=== PATIENT | male | born 1955 | race Caucasian/White ===

== ENCOUNTER 2016-06-14 10:22 | Inpatient (IN) | payer MEDICARE ==
[2016-06-14] MEDS ORDERED: traMADol HCl 50 MG TAB PO PRN (18:06)
[2016-06-14] MEDS ORDERED: Bisacodyl 10 MG SUPP PR PRN (18:15)
[2016-06-14] MEDS ORDERED: HumaLOG 300 UNITS/3 ML VIAL SC PRN (18:15)
[2016-06-14] MEDS ORDERED: Acetaminophen 325 MG TAB PO PRN (18:15)
[2016-06-14] MEDS ORDERED: Milk Of Magnesia 30 ML UDCUP PO PRN (18:15)
[2016-06-14] MEDS ORDERED: Dextrose 5% in Water 1,000 ML IV PRN (18:15)
[2016-06-14 19:02] LABS: #Basophils 0.2 thou/uL (0.0-0.2); #Eosinphils 0.4 thou/uL (0.0-0.7); #Lymphocytes 2.3 thou/uL (1.20-3.40); #Monocytes 0.9 thou/uL (0.11-0.59); #Neutrophils 7.9 thou/uL (1.40-6.50); %Basophils 1.4 % (0.0-1.0); %Eosinophils 3.7 % (0.0-10.0); %Monocytes 7.6 % (0.0-10.0); Hematocrit 33.7 % (42.0-52.0); Mean Platelet Volume 7.7 fL (7.4-10.4); Red Blood Cell (RBC) Count 3.57 mill/uL (4.70-6.10); White Blood Cell (WBC) Count 11.7 thou/uL (4.8-10.8)
[2016-06-14 19:13] LABS: ALT (SGPT) 34 U/L (0-55); AST (SGOT) 26 U/L (5-34); Alkaline Phosphatase 83 U/L (40-150); Anion Gap 14 mmol/L (10-20); BUN (Urea Nitrogen) 52 mg/dL (8.4-25.7); Bilirubin, Total 0.2 mg/dL (0.2-1.2); Calc. Creatinine Clearance 26 mL/min (70-130); Calcium 8.6 mg/dL (7.8-10.44); Carbon Dioxide 23 mmol/L (22-29); Chloride 109 mmol/L (98-107); Estimated GFR-MDRD 19; Protein, Total 6.4 g/dL (6.0-8.3)
[2016-06-14] MEDS ORDERED: Levemir Flexpen 100 UNITS/ML PEN SC SCH (21:00)
[2016-06-14] MEDS: Carvedilol 12.5 MG TAB PO SCH (21:36)
[2016-06-14] MEDS: Famotidine 20 MG TAB PO SCH (21:37)
[2016-06-14] MEDS: Mirtazapine 15 MG TAB PO SCH (21:37)
[2016-06-14] MEDS: Furosemide 40 MG TAB PO SCH (21:38)
[2016-06-14] MEDS: HumaLOG 300 UNITS/3 ML VIAL SC PRN (21:39)
[2016-06-14] MEDS: SODIUM BICARBONATE 650 MG PO SCH (21:40)
[2016-06-15] MEDS: traZODone HCl 50 MG TAB PO PRN ×2 (01:08→21:17)
[2016-06-15] MEDS ORDERED: Sodium Chloride 0.9% 10 ML ONE (05:58)
[2016-06-15] MEDS: Dextrose 50% Abboject 50 ML SYRINGE SLOW IVP PRN (06:05)
[2016-06-15] MEDS: Aspirin 325 MG TAB PO SCH (08:54)
[2016-06-15] MEDS: Furosemide 40 MG TAB PO SCH ×2 (08:54→21:11)
[2016-06-15] MEDS: Carvedilol 12.5 MG TAB PO SCH ×2 (08:55→21:11)
[2016-06-15] MEDS: Atorvastatin Calcium 40 MG TAB PO SCH (08:55)
[2016-06-15] MEDS: Ezetimibe 10 MG TAB PO SCH (08:55)
[2016-06-15] MEDS: Famotidine 20 MG TAB PO SCH (08:56)
[2016-06-15] MEDS: Cyanocobalamin (Vitamin B-12) 1,000 MCG TAB PO SCH (08:56)
[2016-06-15] MEDS: Clopidogrel Bisulfate 75 MG TAB PO SCH (08:56)
[2016-06-15] MEDS: BUPROPION 150 MG PO SCH (08:57)
[2016-06-15] MEDS: HumaLOG 300 UNITS/3 ML VIAL SC SCH ×3 (08:57→18:03)
[2016-06-15] MEDS: SODIUM BICARBONATE 650 MG PO SCH ×2 (08:58→21:10)
[2016-06-15] MEDS: Levemir Flexpen 100 UNITS/ML PEN SC SCH ×2 (09:07→21:12)
--- NOTE | 2016-06-15 09:11 | RAD ---
CHEST TWO VIEWS: Date: 06-14-16 Comparison: 05-10-[address] [facility]. FINDINGS: The congestive changes seen previously have completely resolved. There is some pleural fluid remain ing on the right and there does seem to be a right lower lobe infiltrate. If the patient has signs and symptoms with pneumonia, he should be treated as such. The left lung is relatively clear. The heart is upper normal in size. IMPRESSION: 1. Right lower lobe infiltrate. Compare with clinical symptoms to rule out pneumonia. 2. CHF resolved from prior study. Code T POS: HOME
[2016-06-15] MEDS ORDERED: Polyethylene Glycol 3350 17 GM Packet PO SCH (10:15)
[2016-06-15] MEDS ORDERED: traMADol HCl 50 MG TAB PO PRN (12:13)
[2016-06-15] MEDS ORDERED: Azithromycin 250 MG TAB PO SCH (21:00)
[2016-06-15] MEDS: Mirtazapine 15 MG TAB PO SCH (21:10)
[2016-06-16] MEDS ORDERED: Sodium Chloride 0.9% 20 ML ONE (07:26)
[2016-06-16] MEDS: Dextrose 50% Abboject 50 ML SYRINGE SLOW IVP PRN (07:33)
[2016-06-16] MEDS: HumaLOG 300 UNITS/3 ML VIAL SC SCH (07:34)
[2016-06-16] MEDS: SODIUM BICARBONATE 650 MG PO SCH ×2 (08:19→20:41)
[2016-06-16] MEDS: BUPROPION 150 MG PO SCH (08:20)
[2016-06-16] MEDS: Aspirin 325 MG TAB PO SCH (08:22)
[2016-06-16] MEDS: Atorvastatin Calcium 40 MG TAB PO SCH (08:22)
[2016-06-16] MEDS: Azithromycin 250 MG TAB PO SCH (08:23)
[2016-06-16] MEDS: Furosemide 40 MG TAB PO SCH ×2 (08:24→20:41)
[2016-06-16] MEDS: Famotidine 20 MG TAB PO SCH (08:24)
[2016-06-16] MEDS: Ezetimibe 10 MG TAB PO SCH (08:24)
[2016-06-16] MEDS: Clopidogrel Bisulfate 75 MG TAB PO SCH (08:25)
[2016-06-16] MEDS: Cyanocobalamin (Vitamin B-12) 1,000 MCG TAB PO SCH (08:26)
[2016-06-16] MEDS: Carvedilol 12.5 MG TAB PO SCH ×2 (08:26→20:41)
[2016-06-16] MEDS: Polyethylene Glycol 3350 17 GM Packet PO SCH (08:27)
[2016-06-16] MEDS: HumaLOG 300 UNITS/3 ML VIAL SC PRN (17:59)
[2016-06-16] MEDS: Mirtazapine 15 MG TAB PO SCH (20:41)
[2016-06-17] MEDS: HumaLOG 300 UNITS/3 ML VIAL SC PRN ×2 (09:15→18:08)
[2016-06-17] MEDS: BUPROPION 150 MG PO SCH (09:16)
[2016-06-17] MEDS: SODIUM BICARBONATE 650 MG PO SCH ×2 (09:16→20:56)
[2016-06-17] MEDS: Furosemide 40 MG TAB PO SCH ×2 (09:17→20:57)
[2016-06-17] MEDS: Aspirin 325 MG TAB PO SCH (09:17)
[2016-06-17] MEDS: Azithromycin 250 MG TAB PO SCH (09:17)
[2016-06-17] MEDS: Carvedilol 12.5 MG TAB PO SCH ×2 (09:19→20:58)
[2016-06-17] MEDS: Atorvastatin Calcium 40 MG TAB PO SCH (09:19)
[2016-06-17] MEDS: Clopidogrel Bisulfate 75 MG TAB PO SCH (09:20)
[2016-06-17] MEDS: Ezetimibe 10 MG TAB PO SCH (09:20)
[2016-06-17] MEDS: Cyanocobalamin (Vitamin B-12) 1,000 MCG TAB PO SCH (09:20)
[2016-06-17] MEDS: Famotidine 20 MG TAB PO SCH (09:20)
[2016-06-17] MEDS: Polyethylene Glycol 3350 17 GM Packet PO SCH (09:21)
[2016-06-17] MEDS: Mirtazapine 15 MG TAB PO SCH (20:57)
[2016-06-17] MEDS: Amitriptyline HCl 25 MG TAB PO SCH (20:58)
[2016-06-18 06:26] LABS: #Basophils 0.2 thou/uL (0.0-0.2); #Eosinphils 0.5 thou/uL (0.0-0.7); #Lymphocytes 2.8 thou/uL (1.20-3.40); #Monocytes 1.2 thou/uL (0.11-0.59); #Neutrophils 7.1 thou/uL (1.40-6.50); %Basophils 1.7 % (0.0-1.0); %Eosinophils 4.2 % (0.0-10.0); %Monocytes 10.2 % (0.0-10.0); Red Blood Cell (RBC) Count 3.27 mill/uL (4.70-6.10); White Blood Cell (WBC) Count 11.8 thou/uL (4.8-10.8)
[2016-06-18 06:38] LABS: ALT (SGPT) 34 U/L (0-55); AST (SGOT) 23 U/L (5-34); Alkaline Phosphatase 75 U/L (40-150); Anion Gap 13 mmol/L (10-20); BUN (Urea Nitrogen) 63 mg/dL (8.4-25.7); Bilirubin, Total 0.2 mg/dL (0.2-1.2); Calc. Creatinine Clearance 25 mL/min (70-130); Calcium 8.6 mg/dL (7.8-10.44); Carbon Dioxide 23 mmol/L (22-29); Chloride 108 mmol/L (98-107); Estimated GFR-MDRD 19; Globulin 2.9 g/dL (2.4-3.5); Protein, Total 6.1 g/dL (6.0-8.3)
[2016-06-18] MEDS: HumaLOG 300 UNITS/3 ML VIAL SC PRN ×2 (08:28→18:11)
[2016-06-18] MEDS: SODIUM BICARBONATE 650 MG PO SCH ×2 (08:30→21:31)
[2016-06-18] MEDS: Polyethylene Glycol 3350 17 GM Packet PO SCH (08:30)
[2016-06-18] MEDS: Clopidogrel Bisulfate 75 MG TAB PO SCH (08:32)
[2016-06-18] MEDS: Aspirin 325 MG TAB PO SCH (08:32)
[2016-06-18] MEDS: Cyanocobalamin (Vitamin B-12) 1,000 MCG TAB PO SCH (08:32)
[2016-06-18] MEDS: Azithromycin 250 MG TAB PO SCH (08:32)
[2016-06-18] MEDS: Carvedilol 12.5 MG TAB PO SCH ×2 (08:32→21:17)
[2016-06-18] MEDS: Ezetimibe 10 MG TAB PO SCH (08:32)
[2016-06-18] MEDS: Famotidine 20 MG TAB PO SCH (08:33)
[2016-06-18] MEDS: Furosemide 40 MG TAB PO SCH ×2 (08:33→21:23)
[2016-06-18] MEDS: Atorvastatin Calcium 40 MG TAB PO SCH (08:33)
[2016-06-18] MEDS: Sodium Chloride 0.9% 10 ML ONE (08:43)
[2016-06-18] MEDS ORDERED: Furosemide 20 MG TAB PO SCH (12:15)
[2016-06-18] MEDS: BUPROPION 150 MG PO SCH (16:00)
[2016-06-18] MEDS ORDERED: Levemir Flexpen 100 UNITS/ML PEN SC SCH (21:00)
[2016-06-18] MEDS: Amitriptyline HCl 25 MG TAB PO SCH (21:19)
[2016-06-18] MEDS: Mirtazapine 15 MG TAB PO SCH (21:20)
--- NOTE | 2016-06-19 08:42 | RAD ---
FRONTAL CHEST: Date: 06/19/16 PROVIDED CLINICAL HISTORY: Follow-up. FINDINGS: Comparison with 06/14/16. The cardiac and mediastinal silhouette is unchanged in appearance. Median sternotomy changes are aga in seen, as is atherosclerosis involving the aortic arch. Right basilar pleural and/or parenchymal o pacity appears similar to the prior study. IMPRESSION: Stable radiographic appearance of the chest. POS: [facility]
[2016-06-19] MEDS: HumaLOG 300 UNITS/3 ML VIAL SC PRN ×4 (08:46→21:40)
[2016-06-19] MEDS: Polyethylene Glycol 3350 17 GM Packet PO SCH (08:49)
[2016-06-19] MEDS: Sodium Chloride 0.9% 10 ML ONE (08:49)
[2016-06-19] MEDS: Lisinopril 5 MG TAB PO SCH (08:50)
[2016-06-19] MEDS: Furosemide 40 MG TAB PO SCH ×2 (08:50→21:35)
[2016-06-19] MEDS: Carvedilol 12.5 MG TAB PO SCH ×2 (08:51→21:37)
[2016-06-19] MEDS: Famotidine 20 MG TAB PO SCH (08:51)
[2016-06-19] MEDS: Cyanocobalamin (Vitamin B-12) 1,000 MCG TAB PO SCH (08:52)
[2016-06-19] MEDS: Aspirin 325 MG TAB PO SCH (08:52)
[2016-06-19] MEDS: Ezetimibe 10 MG TAB PO SCH (08:52)
[2016-06-19] MEDS: Azithromycin 250 MG TAB PO SCH (08:52)
[2016-06-19] MEDS: Clopidogrel Bisulfate 75 MG TAB PO SCH (08:52)
[2016-06-19] MEDS: Atorvastatin Calcium 40 MG TAB PO SCH (08:52)
[2016-06-19] MEDS: SODIUM BICARBONATE 650 MG PO SCH ×2 (08:53→22:09)
[2016-06-19] MEDS: Mirtazapine 15 MG TAB PO SCH (21:35)
[2016-06-19] MEDS: Amitriptyline HCl 25 MG TAB PO SCH (21:35)
[2016-06-19] MEDS: cloNIDine HCl 0.1 MG TAB PO SCH (21:37)
[2016-06-20 06:52] LABS: ALT (SGPT) 39 U/L (0-55); AST (SGOT) 32 U/L (5-34); Alkaline Phosphatase 78 U/L (40-150); Anion Gap 14 mmol/L (10-20); BUN (Urea Nitrogen) 66 mg/dL (8.4-25.7); Bilirubin, Total 0.2 mg/dL (0.2-1.2); Calc. Creatinine Clearance 0 mL/min (70-130); Calcium 8.7 mg/dL (7.8-10.44); Carbon Dioxide 24 mmol/L (22-29); Chloride 107 mmol/L (98-107); Estimated GFR-MDRD 18; Globulin 2.6 g/dL (2.4-3.5); Protein, Total 5.8 g/dL (6.0-8.3)
[2016-06-20] MEDS ORDERED: cloNIDine HCl 0.1 MG TAB ONE ×2 (08:32→08:33)
[2016-06-20] MEDS: HumaLOG 300 UNITS/3 ML VIAL SC PRN ×3 (08:45→21:46)
[2016-06-20] MEDS: Furosemide 40 MG TAB PO SCH (08:47)
[2016-06-20] MEDS: Atorvastatin Calcium 40 MG TAB PO SCH (08:50)
[2016-06-20] MEDS: Clopidogrel Bisulfate 75 MG TAB PO SCH (08:51)
[2016-06-20] MEDS: Famotidine 20 MG TAB PO SCH (08:52)
[2016-06-20] MEDS: Carvedilol 12.5 MG TAB PO SCH ×2 (08:52→21:42)
[2016-06-20] MEDS: Cyanocobalamin (Vitamin B-12) 1,000 MCG TAB PO SCH (08:54)
[2016-06-20] MEDS: cloNIDine HCl 0.1 MG TAB PO SCH ×2 (08:54→21:41)
[2016-06-20] MEDS: Ezetimibe 10 MG TAB PO SCH (08:55)
[2016-06-20] MEDS: Aspirin 325 MG TAB PO SCH (08:55)
[2016-06-20] MEDS: Lisinopril 5 MG TAB PO SCH (08:55)
[2016-06-20] MEDS: Polyethylene Glycol 3350 17 GM Packet PO SCH (08:56)
[2016-06-20] MEDS: SODIUM BICARBONATE 650 MG PO SCH ×2 (08:56→21:45)
[2016-06-20] MEDS ORDERED: Furosemide 40 MG TAB PO SCH ×2 (10:45→21:00)
[2016-06-20] MEDS: Mirtazapine 15 MG TAB PO SCH (21:43)
[2016-06-20] MEDS: Amitriptyline HCl 25 MG TAB PO SCH (21:44)
[2016-06-21 05:41] LABS: #Basophils 0.2 thou/uL (0.0-0.2); #Eosinphils 0.4 thou/uL (0.0-0.7); #Lymphocytes 2.5 thou/uL (1.20-3.40); #Neutrophils 6.2 thou/uL (1.40-6.50); %Basophils 1.5 % (0.0-1.0); %Eosinophils 4.3 % (0.0-10.0); %Monocytes 9.7 % (0.0-10.0); Hematocrit 31.7 % (42.0-52.0); Mean Platelet Volume 7.9 fL (7.4-10.4); Red Blood Cell (RBC) Count 3.36 mill/uL (4.70-6.10); White Blood Cell (WBC) Count 10.2 thou/uL (4.8-10.8)
[2016-06-21 06:34] LABS: ALT (SGPT) 35 U/L (0-55); AST (SGOT) 25 U/L (5-34); Alkaline Phosphatase 76 U/L (40-150); Anion Gap 14 mmol/L (10-20); BUN (Urea Nitrogen) 70 mg/dL (8.4-25.7); Bilirubin, Total 0.2 mg/dL (0.2-1.2); Calc. Creatinine Clearance 22 mL/min (70-130); Calcium 8.6 mg/dL (7.8-10.44); Carbon Dioxide 27 mmol/L (22-29); Chloride 105 mmol/L (98-107); Estimated GFR-MDRD 17; Globulin 2.7 g/dL (2.4-3.5); Protein, Total 5.9 g/dL (6.0-8.3)
[2016-06-21] MEDS ORDERED: Sodium Chloride 0.9% 1,000 ML IV SCH (08:45)
[2016-06-21] MEDS: HumaLOG 300 UNITS/3 ML VIAL SC PRN ×4 (09:16→22:00)
[2016-06-21] MEDS: Lisinopril 5 MG TAB PO SCH (09:31)
[2016-06-21] MEDS: Carvedilol 12.5 MG TAB PO SCH ×2 (09:31→21:58)
[2016-06-21] MEDS: Polyethylene Glycol 3350 17 GM Packet PO SCH (09:31)
[2016-06-21] MEDS: Ezetimibe 10 MG TAB PO SCH (09:32)
[2016-06-21] MEDS: Aspirin 325 MG TAB PO SCH (09:33)
[2016-06-21] MEDS: Famotidine 20 MG TAB PO SCH (09:33)
[2016-06-21] MEDS: cloNIDine HCl 0.1 MG TAB PO SCH ×2 (09:33→21:59)
[2016-06-21] MEDS: Cyanocobalamin (Vitamin B-12) 1,000 MCG TAB PO SCH (09:34)
[2016-06-21] MEDS: Atorvastatin Calcium 40 MG TAB PO SCH (09:34)
[2016-06-21] MEDS: SODIUM BICARBONATE 650 MG PO SCH ×2 (09:34→22:16)
[2016-06-21] MEDS: Clopidogrel Bisulfate 75 MG TAB PO SCH (10:48)
[2016-06-21 16:04] LABS: Anion Gap 12 mmol/L (10-20); BUN (Urea Nitrogen) 68 mg/dL (8.4-25.7); Calc. Creatinine Clearance 23 mL/min (70-130); Calcium 8.7 mg/dL (7.8-10.44); Carbon Dioxide 25 mmol/L (22-29); Chloride 108 mmol/L (98-107); Estimated GFR-MDRD 18
[2016-06-21] MEDS: Mirtazapine 15 MG TAB PO SCH (22:00)
[2016-06-21] MEDS: Amitriptyline HCl 25 MG TAB PO SCH (22:15)
[2016-06-22 06:25] LABS: Anion Gap 16 mmol/L (10-20); BUN (Urea Nitrogen) 68 mg/dL (8.4-25.7); Calc. Creatinine Clearance 23 mL/min (70-130); Calcium 8.4 mg/dL (7.8-10.44); Carbon Dioxide 22 mmol/L (22-29); Chloride 108 mmol/L (98-107); Estimated GFR-MDRD 18
--- NOTE | 2016-06-22 08:14 | RAD ---
CHEST TWO VIEWS: Comparison: History: Congestive heart failure. FINDINGS: Stable post-operative changes. Atherosclerosis of the aorta. Normal cardiac silhouette. The pulmo nary vessels and hilum are normal. Costophrenic angles are clear. Slight improved aeration of the right lower lobe. Residual opacities do remain in the right lower lobe. Stable opacification of th e left lower lobe with tenting of the left hemidiaphragm. No pneumothorax. IMPRESSION: Persistent but improved bibasilar opacities. Continued surveillance. POS: [facility]
[2016-06-22] MEDS: SODIUM BICARBONATE 650 MG PO SCH ×2 (08:45→20:03)
[2016-06-22] MEDS: HumaLOG 300 UNITS/3 ML VIAL SC PRN (08:59)
[2016-06-22] MEDS: HumaLOG 300 UNITS/3 ML VIAL SC SCH ×3 (09:00→17:53)
[2016-06-22] MEDS: Carvedilol 12.5 MG TAB PO SCH ×2 (09:02→20:00)
[2016-06-22] MEDS: Polyethylene Glycol 3350 17 GM Packet PO SCH (09:02)
[2016-06-22] MEDS: cloNIDine HCl 0.1 MG TAB PO SCH ×2 (09:02→20:00)
[2016-06-22] MEDS: Clopidogrel Bisulfate 75 MG TAB PO SCH (09:03)
[2016-06-22] MEDS: Atorvastatin Calcium 40 MG TAB PO SCH (09:03)
[2016-06-22] MEDS: Aspirin 325 MG TAB PO SCH (09:03)
[2016-06-22] MEDS: Famotidine 20 MG TAB PO SCH (09:03)
[2016-06-22] MEDS: Lisinopril 5 MG TAB PO SCH (09:04)
[2016-06-22] MEDS: Ezetimibe 10 MG TAB PO SCH (09:04)
[2016-06-22] MEDS: Cyanocobalamin (Vitamin B-12) 1,000 MCG TAB PO SCH (09:04)
[2016-06-22] MEDS: Amitriptyline HCl 25 MG TAB PO SCH (20:00)
[2016-06-22] MEDS: Mirtazapine 15 MG TAB PO SCH (20:02)
[2016-06-23 05:39] LABS: Anion Gap 13 mmol/L (10-20); BUN (Urea Nitrogen) 67 mg/dL (8.4-25.7); Calc. Creatinine Clearance 22 mL/min (70-130); Calcium 8.8 mg/dL (7.8-10.44); Carbon Dioxide 22 mmol/L (22-29); Chloride 109 mmol/L (98-107); Estimated GFR-MDRD 17
[2016-06-23] MEDS: Polyethylene Glycol 3350 17 GM Packet PO SCH (08:35)
[2016-06-23] MEDS: HumaLOG 300 UNITS/3 ML VIAL SC PRN ×3 (08:36→18:38)
[2016-06-23] MEDS: HumaLOG 300 UNITS/3 ML VIAL SC SCH ×3 (08:36→18:37)
[2016-06-23] MEDS: SODIUM BICARBONATE 650 MG PO SCH ×2 (08:38→21:45)
[2016-06-23] MEDS: Atorvastatin Calcium 40 MG TAB PO SCH (08:40)
[2016-06-23] MEDS: Aspirin 325 MG TAB PO SCH (08:40)
[2016-06-23] MEDS: Cyanocobalamin (Vitamin B-12) 1,000 MCG TAB PO SCH (08:41)
[2016-06-23] MEDS: Clopidogrel Bisulfate 75 MG TAB PO SCH (08:41)
[2016-06-23] MEDS: Ezetimibe 10 MG TAB PO SCH (08:42)
[2016-06-23] MEDS: Famotidine 20 MG TAB PO SCH (08:42)
[2016-06-23] MEDS: Carvedilol 12.5 MG TAB PO SCH ×2 (08:43→21:46)
[2016-06-23] MEDS: cloNIDine HCl 0.1 MG TAB PO SCH ×2 (08:43→21:45)
[2016-06-23] MEDS: Amitriptyline HCl 25 MG TAB PO SCH (21:46)
[2016-06-23] MEDS: Mirtazapine 15 MG TAB PO SCH (21:47)
[2016-06-24 06:11] LABS: Anion Gap 15 mmol/L (10-20); BUN (Urea Nitrogen) 67 mg/dL (8.4-25.7); Calc. Creatinine Clearance 23 mL/min (70-130); Calcium 8.5 mg/dL (7.8-10.44); Carbon Dioxide 22 mmol/L (22-29); Chloride 108 mmol/L (98-107); Estimated GFR-MDRD 18
[2016-06-24] MEDS: HumaLOG 300 UNITS/3 ML VIAL SC SCH ×3 (08:04→18:36)
[2016-06-24] MEDS: Polyethylene Glycol 3350 17 GM Packet PO SCH (08:04)
[2016-06-24] MEDS: HumaLOG 300 UNITS/3 ML VIAL SC PRN ×3 (08:05→20:51)
[2016-06-24] MEDS: SODIUM BICARBONATE 650 MG PO SCH ×2 (08:05→20:45)
[2016-06-24] MEDS: Cyanocobalamin (Vitamin B-12) 1,000 MCG TAB PO SCH (08:06)
[2016-06-24] MEDS: Aspirin 325 MG TAB PO SCH (08:06)
[2016-06-24] MEDS: Atorvastatin Calcium 40 MG TAB PO SCH (08:06)
[2016-06-24] MEDS: Famotidine 20 MG TAB PO SCH (08:07)
[2016-06-24] MEDS: Clopidogrel Bisulfate 75 MG TAB PO SCH (08:07)
[2016-06-24] MEDS: Carvedilol 12.5 MG TAB PO SCH ×2 (08:27→20:46)
[2016-06-24] MEDS: Ezetimibe 10 MG TAB PO SCH (08:28)
[2016-06-24] MEDS: cloNIDine HCl 0.1 MG TAB PO SCH ×2 (09:36→20:47)
[2016-06-24] MEDS: Mirtazapine 15 MG TAB PO SCH (20:46)
[2016-06-24] MEDS: Amitriptyline HCl 25 MG TAB PO SCH (20:47)
[2016-06-25] MEDS: HumaLOG 300 UNITS/3 ML VIAL SC SCH ×3 (09:17→18:17)
[2016-06-25] MEDS: Clopidogrel Bisulfate 75 MG TAB PO SCH (09:18)
[2016-06-25] MEDS: Carvedilol 12.5 MG TAB PO SCH ×2 (09:21→21:06)
[2016-06-25] MEDS: Famotidine 20 MG TAB PO SCH (09:21)
[2016-06-25] MEDS: Aspirin 325 MG TAB PO SCH (09:21)
[2016-06-25] MEDS: Cyanocobalamin (Vitamin B-12) 1,000 MCG TAB PO SCH (09:22)
[2016-06-25] MEDS: Atorvastatin Calcium 40 MG TAB PO SCH (09:22)
[2016-06-25] MEDS: cloNIDine HCl 0.1 MG TAB PO SCH ×2 (09:23→21:07)
[2016-06-25] MEDS: Polyethylene Glycol 3350 17 GM Packet PO SCH (09:23)
[2016-06-25] MEDS: Ezetimibe 10 MG TAB PO SCH (09:23)
[2016-06-25] MEDS: SODIUM BICARBONATE 650 MG PO SCH ×2 (09:24→21:06)
[2016-06-25] MEDS: HumaLOG 300 UNITS/3 ML VIAL SC PRN (13:01)
[2016-06-25] MEDS: Mirtazapine 15 MG TAB PO SCH (21:06)
[2016-06-25] MEDS: Levemir Flexpen 100 UNITS/ML PEN SC SCH (21:07)
[2016-06-25] MEDS: Amitriptyline HCl 25 MG TAB PO SCH (21:18)
[2016-06-26] MEDS: HumaLOG 300 UNITS/3 ML VIAL SC SCH ×3 (08:12→18:32)
[2016-06-26] MEDS: HumaLOG 300 UNITS/3 ML VIAL SC PRN ×2 (08:13→18:33)
[2016-06-26] MEDS: Polyethylene Glycol 3350 17 GM Packet PO SCH (08:17)
[2016-06-26] MEDS: Clopidogrel Bisulfate 75 MG TAB PO SCH (08:19)
[2016-06-26] MEDS: cloNIDine HCl 0.1 MG TAB PO SCH ×2 (08:19→21:02)
[2016-06-26] MEDS: Atorvastatin Calcium 40 MG TAB PO SCH (08:19)
[2016-06-26] MEDS: Carvedilol 12.5 MG TAB PO SCH ×2 (08:20→21:01)
[2016-06-26] MEDS: Famotidine 20 MG TAB PO SCH (08:20)
[2016-06-26] MEDS: Aspirin 325 MG TAB PO SCH (08:20)
[2016-06-26] MEDS: Ezetimibe 10 MG TAB PO SCH (08:21)
[2016-06-26] MEDS: Cyanocobalamin (Vitamin B-12) 1,000 MCG TAB PO SCH (08:21)
[2016-06-26] MEDS: SODIUM BICARBONATE 650 MG PO SCH ×2 (08:21→21:01)
[2016-06-26] MEDS: Mirtazapine 15 MG TAB PO SCH (21:02)
[2016-06-26] MEDS: Amitriptyline HCl 25 MG TAB PO SCH (21:04)
[2016-06-26] MEDS: Levemir Flexpen 100 UNITS/ML PEN SC SCH (21:04)
[2016-06-27] MEDS: SODIUM BICARBONATE 650 MG PO SCH ×2 (08:22→21:03)
[2016-06-27] MEDS: Polyethylene Glycol 3350 17 GM Packet PO SCH (08:23)
[2016-06-27] MEDS: Furosemide 40 MG TAB PO SCH (08:24)
[2016-06-27] MEDS: Famotidine 20 MG TAB PO SCH (08:25)
[2016-06-27] MEDS: Atorvastatin Calcium 40 MG TAB PO SCH (08:25)
[2016-06-27] MEDS: Aspirin 325 MG TAB PO SCH (08:25)
[2016-06-27] MEDS: Cyanocobalamin (Vitamin B-12) 1,000 MCG TAB PO SCH (08:25)
[2016-06-27] MEDS: Clopidogrel Bisulfate 75 MG TAB PO SCH (08:26)
[2016-06-27] MEDS: Carvedilol 12.5 MG TAB PO SCH ×2 (08:27→20:52)
[2016-06-27] MEDS: Ezetimibe 10 MG TAB PO SCH (08:27)
[2016-06-27] MEDS: cloNIDine HCl 0.1 MG TAB PO SCH ×2 (08:28→20:56)
[2016-06-27] MEDS: HumaLOG 300 UNITS/3 ML VIAL SC SCH ×3 (08:31→17:47)
[2016-06-27] MEDS: HumaLOG 300 UNITS/3 ML VIAL SC PRN (08:32)
[2016-06-27] MEDS: Mirtazapine 15 MG TAB PO SCH (20:53)
[2016-06-27] MEDS: Amitriptyline HCl 25 MG TAB PO SCH (20:53)
[2016-06-27] MEDS: Levemir Flexpen 100 UNITS/ML PEN SC SCH (20:57)
[2016-06-28] MEDS ORDERED: Furosemide 20 MG TAB PO SCH (08:30)
[2016-06-28] MEDS ORDERED: Furosemide 40 MG TAB PO SCH (08:30)
[2016-06-28] MEDS: cloNIDine HCl 0.1 MG TAB PO SCH ×2 (09:00→20:13)
[2016-06-28] MEDS: Atorvastatin Calcium 40 MG TAB PO SCH (09:01)
[2016-06-28] MEDS: Ezetimibe 10 MG TAB PO SCH (09:02)
[2016-06-28] MEDS: Carvedilol 12.5 MG TAB PO SCH ×2 (09:02→20:12)
[2016-06-28] MEDS: Famotidine 20 MG TAB PO SCH (09:02)
[2016-06-28] MEDS: Cyanocobalamin (Vitamin B-12) 1,000 MCG TAB PO SCH (09:02)
[2016-06-28] MEDS: Aspirin 325 MG TAB PO SCH (09:03)
[2016-06-28] MEDS: Clopidogrel Bisulfate 75 MG TAB PO SCH (09:04)
[2016-06-28] MEDS: Polyethylene Glycol 3350 17 GM Packet PO SCH (09:04)
[2016-06-28] MEDS: SODIUM BICARBONATE 650 MG PO SCH ×2 (09:05→20:11)
[2016-06-28] MEDS: Levemir Flexpen 100 UNITS/ML PEN SC SCH ×2 (09:12→20:15)
[2016-06-28] MEDS: HumaLOG 300 UNITS/3 ML VIAL SC SCH ×3 (09:14→17:41)
[2016-06-28] MEDS: Furosemide 40 MG TAB PO SCH (09:24)
[2016-06-28] MEDS: HumaLOG 300 UNITS/3 ML VIAL SC PRN (17:42)
[2016-06-28] MEDS: Mirtazapine 15 MG TAB PO SCH (20:12)
[2016-06-28] MEDS: Amitriptyline HCl 25 MG TAB PO SCH (20:12)
[2016-06-29] MEDS: Clopidogrel Bisulfate 75 MG TAB PO SCH (08:33)
[2016-06-29] MEDS: Carvedilol 12.5 MG TAB PO SCH ×2 (08:33→20:59)
[2016-06-29] MEDS: Furosemide 40 MG TAB PO SCH (08:34)
[2016-06-29] MEDS: cloNIDine HCl 0.1 MG TAB PO SCH ×2 (08:34→20:58)
[2016-06-29] MEDS: Aspirin 325 MG TAB PO SCH (08:34)
[2016-06-29] MEDS: Atorvastatin Calcium 40 MG TAB PO SCH (08:34)
[2016-06-29] MEDS: Cyanocobalamin (Vitamin B-12) 1,000 MCG TAB PO SCH (08:35)
[2016-06-29] MEDS: Ezetimibe 10 MG TAB PO SCH (08:35)
[2016-06-29] MEDS: Famotidine 20 MG TAB PO SCH (08:35)
[2016-06-29] MEDS: SODIUM BICARBONATE 650 MG PO SCH ×2 (08:37→20:57)
[2016-06-29] MEDS: Levemir Flexpen 100 UNITS/ML PEN SC SCH ×2 (08:40→20:57)
[2016-06-29] MEDS: Polyethylene Glycol 3350 17 GM Packet PO SCH (08:40)
[2016-06-29] MEDS: HumaLOG 300 UNITS/3 ML VIAL SC SCH ×3 (08:47→18:24)
[2016-06-29] MEDS: HumaLOG 300 UNITS/3 ML VIAL SC PRN ×2 (13:28→18:26)
[2016-06-29] MEDS: Amitriptyline HCl 25 MG TAB PO SCH (20:59)
[2016-06-29] MEDS: Mirtazapine 15 MG TAB PO SCH (20:59)
[2016-06-30 05:59] LABS: Anion Gap 14 mmol/L (10-20); BUN (Urea Nitrogen) 58 mg/dL (8.4-25.7); Calc. Creatinine Clearance 24 mL/min (70-130); Calcium 8.9 mg/dL (7.8-10.44); Carbon Dioxide 21 mmol/L (22-29); Chloride 112 mmol/L (98-107); Estimated GFR-MDRD 18
[2016-06-30] MEDS: cloNIDine HCl 0.1 MG TAB PO SCH ×2 (08:32→21:21)
[2016-06-30] MEDS: Famotidine 20 MG TAB PO SCH (08:32)
[2016-06-30] MEDS: Furosemide 40 MG TAB PO SCH (08:33)
[2016-06-30] MEDS: Carvedilol 12.5 MG TAB PO SCH ×2 (08:34→21:21)
[2016-06-30] MEDS: Atorvastatin Calcium 40 MG TAB PO SCH (08:34)
[2016-06-30] MEDS: Ezetimibe 10 MG TAB PO SCH (08:35)
[2016-06-30] MEDS: Clopidogrel Bisulfate 75 MG TAB PO SCH (08:35)
[2016-06-30] MEDS: Aspirin 325 MG TAB PO SCH (08:35)
[2016-06-30] MEDS: Cyanocobalamin (Vitamin B-12) 1,000 MCG TAB PO SCH (08:35)
[2016-06-30] MEDS: Polyethylene Glycol 3350 17 GM Packet PO SCH (08:35)
[2016-06-30] MEDS: SODIUM BICARBONATE 650 MG PO SCH ×2 (08:36→21:22)
[2016-06-30] MEDS: HumaLOG 300 UNITS/3 ML VIAL SC SCH ×3 (08:39→18:26)
[2016-06-30] MEDS: Levemir Flexpen 100 UNITS/ML PEN SC SCH ×2 (08:40→21:24)
[2016-06-30 10:12] VITALS: BMI 23.6
[2016-06-30] MEDS: HumaLOG 300 UNITS/3 ML VIAL SC PRN (13:29)
[2016-06-30] MEDS: Amitriptyline HCl 25 MG TAB PO SCH (21:20)
[2016-06-30] MEDS: Mirtazapine 15 MG TAB PO SCH (21:21)
[2016-07-01] MEDS: HumaLOG 300 UNITS/3 ML VIAL SC SCH ×3 (09:07→17:39)
[2016-07-01] MEDS: HumaLOG 300 UNITS/3 ML VIAL SC PRN ×3 (09:08→17:39)
[2016-07-01] MEDS: Levemir Flexpen 100 UNITS/ML PEN SC SCH ×2 (09:09→21:57)
[2016-07-01] MEDS: Polyethylene Glycol 3350 17 GM Packet PO SCH (09:11)
[2016-07-01] MEDS: Carvedilol 12.5 MG TAB PO SCH ×2 (09:12→20:55)
[2016-07-01] MEDS: Furosemide 40 MG TAB PO SCH (09:12)
[2016-07-01] MEDS: cloNIDine HCl 0.1 MG TAB PO SCH ×2 (09:15→20:56)
[2016-07-01] MEDS: Atorvastatin Calcium 40 MG TAB PO SCH (09:16)
[2016-07-01] MEDS: Famotidine 20 MG TAB PO SCH (09:17)
[2016-07-01] MEDS: Ezetimibe 10 MG TAB PO SCH (09:17)
[2016-07-01] MEDS: Aspirin 325 MG TAB PO SCH (09:17)
[2016-07-01] MEDS: Cyanocobalamin (Vitamin B-12) 1,000 MCG TAB PO SCH (09:18)
[2016-07-01] MEDS: Clopidogrel Bisulfate 75 MG TAB PO SCH (09:18)
[2016-07-01] MEDS: SODIUM BICARBONATE 650 MG PO SCH ×2 (09:19→20:58)
[2016-07-01] MEDS: Amitriptyline HCl 25 MG TAB PO SCH (20:53)
[2016-07-01] MEDS: Mirtazapine 15 MG TAB PO SCH (20:57)
[2016-07-02] MEDS: Atorvastatin Calcium 40 MG TAB PO SCH (08:29)
[2016-07-02] MEDS: Furosemide 40 MG TAB PO SCH (08:30)
[2016-07-02] MEDS: cloNIDine HCl 0.1 MG TAB PO SCH ×2 (08:30→21:04)
[2016-07-02] MEDS: Clopidogrel Bisulfate 75 MG TAB PO SCH (08:31)
[2016-07-02] MEDS: Carvedilol 12.5 MG TAB PO SCH ×2 (08:31→21:04)
[2016-07-02] MEDS: Cyanocobalamin (Vitamin B-12) 1,000 MCG TAB PO SCH (08:31)
[2016-07-02] MEDS: Famotidine 20 MG TAB PO SCH (08:31)
[2016-07-02] MEDS: Ezetimibe 10 MG TAB PO SCH (08:32)
[2016-07-02] MEDS: Aspirin 325 MG TAB PO SCH (08:33)
[2016-07-02] MEDS: HumaLOG 300 UNITS/3 ML VIAL SC SCH ×3 (08:33→18:13)
[2016-07-02] MEDS: Polyethylene Glycol 3350 17 GM Packet PO SCH (08:33)
[2016-07-02] MEDS: SODIUM BICARBONATE 650 MG PO SCH ×2 (08:33→21:06)
[2016-07-02] MEDS: Levemir Flexpen 100 UNITS/ML PEN SC SCH ×2 (08:34→21:08)
[2016-07-02] MEDS: HumaLOG 300 UNITS/3 ML VIAL SC PRN (12:45)
[2016-07-02] MEDS: Amitriptyline HCl 25 MG TAB PO SCH (21:03)
[2016-07-02] MEDS: Mirtazapine 15 MG TAB PO SCH (21:06)
[2016-07-03] MEDS: Cyanocobalamin (Vitamin B-12) 1,000 MCG TAB PO SCH (08:26)
[2016-07-03] MEDS: Furosemide 40 MG TAB PO SCH (08:26)
[2016-07-03] MEDS: Carvedilol 12.5 MG TAB PO SCH ×2 (08:26→20:30)
[2016-07-03] MEDS: Aspirin 325 MG TAB PO SCH (08:27)
[2016-07-03] MEDS: Clopidogrel Bisulfate 75 MG TAB PO SCH (08:27)
[2016-07-03] MEDS: Ezetimibe 10 MG TAB PO SCH (08:27)
[2016-07-03] MEDS: Atorvastatin Calcium 40 MG TAB PO SCH (08:27)
[2016-07-03] MEDS: Famotidine 20 MG TAB PO SCH (08:27)
[2016-07-03] MEDS: cloNIDine HCl 0.1 MG TAB PO SCH ×2 (08:28→20:30)
[2016-07-03] MEDS: Polyethylene Glycol 3350 17 GM Packet PO SCH (08:29)
[2016-07-03] MEDS: Levemir Flexpen 100 UNITS/ML PEN SC SCH ×2 (08:29→20:27)
[2016-07-03] MEDS: SODIUM BICARBONATE 650 MG PO SCH ×2 (08:29→20:31)
[2016-07-03] MEDS: HumaLOG 300 UNITS/3 ML VIAL SC SCH ×3 (08:30→17:30)
[2016-07-03] MEDS: HumaLOG 300 UNITS/3 ML VIAL SC PRN ×2 (12:48→17:30)
[2016-07-03] MEDS: Mirtazapine 15 MG TAB PO SCH (20:29)
[2016-07-03] MEDS: Amitriptyline HCl 25 MG TAB PO SCH (20:31)
[2016-07-04 05:43] VITALS: TEMP 97.6
[2016-07-04] MEDS: Furosemide 40 MG TAB PO SCH (08:40)
[2016-07-04] MEDS: Aspirin 325 MG TAB PO SCH (08:40)
[2016-07-04] MEDS: Atorvastatin Calcium 40 MG TAB PO SCH (08:41)
[2016-07-04] MEDS: Carvedilol 12.5 MG TAB PO SCH (08:41)
[2016-07-04] MEDS: cloNIDine HCl 0.1 MG TAB PO SCH (08:42)
[2016-07-04] MEDS: Cyanocobalamin (Vitamin B-12) 1,000 MCG TAB PO SCH (08:42)
[2016-07-04] MEDS: Famotidine 20 MG TAB PO SCH (08:42)
[2016-07-04] MEDS: Clopidogrel Bisulfate 75 MG TAB PO SCH (08:42)
[2016-07-04] MEDS: Ezetimibe 10 MG TAB PO SCH (08:43)
[2016-07-04] MEDS: Levemir Flexpen 100 UNITS/ML PEN SC SCH (08:44)
[2016-07-04] MEDS: HumaLOG 300 UNITS/3 ML VIAL SC SCH ×2 (08:44→12:52)
[2016-07-04] MEDS: Polyethylene Glycol 3350 17 GM Packet PO SCH (08:44)
[2016-07-04] MEDS: SODIUM BICARBONATE 650 MG PO SCH (08:46)
[2016-07-04 13:41] VITALS: BP 134/78
== END 2016-07-04 14:44 | disposition home health service (06) | DRG 292 ==
LOC: BURMED 14:38
PROVIDERS: ADMIT Family Medicine; ATTEND Family Medicine
DX: I13.0 Hypertensive heart and chronic kidney disease with heart failure and stage 1 through stage 4 chronic kidney disease, or unspecified chronic kidney disease (principal); N18.4 Chronic kidney disease, stage 4 (severe); E11.22 Type 2 diabetes mellitus with diabetic chronic kidney disease; N17.9 Acute kidney failure, unspecified; E87.5 Hyperkalemia; E11.42 Type 2 diabetes mellitus with diabetic polyneuropathy; H90.5 Unspecified sensorineural hearing loss; I50.22 Chronic systolic (congestive) heart failure; E11.65 Type 2 diabetes mellitus with hyperglycemia; Z79.4 Long term (current) use of insulin; Z91.11 Patient's noncompliance with dietary regimen; F32.9 Major depressive disorder, single episode, unspecified; R53.81 Other malaise; E78.5 Hyperlipidemia, unspecified; I25.10 Atherosclerotic heart disease of native coronary artery without angina pectoris; Z95.1 Presence of aortocoronary bypass graft; F17.210 Nicotine dependence, cigarettes, uncomplicated; I25.5 Ischemic cardiomyopathy; M51.36 Other intervertebral disc degeneration, lumbar region; F10.21 Alcohol dependence, in remission
CPT/HCPCS: 36415; 36416; 71020; 80048; 80053; 83036; 85025; A4216; G8987-GO-CJ; G8988-GO-CI; J1815

== ENCOUNTER 2016-08-01 12:20 | Outpatient (CLI) | payer MEDICARE ==
[2016-08-01 13:53] LABS: Hematocrit 32.5 % (42.0-52.0); Mean Platelet Volume 8.5 fL (7.4-10.4); Red Blood Cell (RBC) Count 3.44 mill/uL (4.70-6.10); White Blood Cell (WBC) Count 15.1 thou/uL (4.8-10.8)
[2016-08-01 15:10] LABS: Anion Gap 16 mmol/L (10-20); BUN (Urea Nitrogen) 42 mg/dL (8.4-25.7); Calc. Creatinine Clearance 0 mL/min (70-130); Calcium 8.3 mg/dL (7.8-10.44); Carbon Dioxide 20 mmol/L (22-29); Chloride 111 mmol/L (98-107); Estimated GFR-MDRD 21
[2016-08-01 17:55] LABS: Iron 61 ug/dL (65-175)
== END 2016-08-01 12:21 | disposition home or self-care (01) ==
LOC: BURLAB 12:20
PROVIDERS: ATTEND Internal Medicine Nephrology
DX: E11.22 Type 2 diabetes mellitus with diabetic chronic kidney disease (principal); N18.4 Chronic kidney disease, stage 4 (severe); D63.1 Anemia in chronic kidney disease; R80.9 Proteinuria, unspecified
CPT/HCPCS: 36415; 80048; 83540; 83550; 85014; 85018; 85027

== ENCOUNTER 2016-08-19 10:18 | Outpatient (CLI) | payer MEDICARE ==
--- NOTE | 2016-08-19 20:37 | ULT ---
LEFT LOWER EXTREMITY VENOUS ULTRASOUND 08/19/16 Color duplex doppler ultrasonography of the left lower extremity was performed. There is good compre ssion of all deep veins from groin to ankle. No echogenic clot was seen. There is normal doppler res ponse to augmentation maneuvers. IMPRESSION: No evidence of DVT. POS: HOME
== END 2016-08-19 10:19 | disposition home or self-care (01) ==
LOC: BURULT 10:18
PROVIDERS: ATTEND Family Medicine
DX: R60.0 Localized edema (principal)

== ENCOUNTER 2016-09-26 14:02 | Outpatient (CLI) | payer MEDICARE ==
[2016-09-26 14:52] LABS: Anion Gap 15 mmol/L (10-20); BUN (Urea Nitrogen) 63 mg/dL (8.4-25.7); Calc. Creatinine Clearance 0 mL/min (70-130); Calcium 8.5 mg/dL (7.8-10.44); Carbon Dioxide 26 mmol/L (22-29); Chloride 103 mmol/L (98-107); Estimated GFR-MDRD 16; Glucose 314 mg/dL (70-105); Sodium 140 mmol/L (136-145)
== END 2016-09-26 14:03 | disposition home or self-care (01) ==
LOC: BURLAB 14:02
PROVIDERS: ATTEND Internal Medicine Nephrology
DX: I12.9 Hypertensive chronic kidney disease with stage 1 through stage 4 chronic kidney disease, or unspecified chronic kidney disease (principal); N18.4 Chronic kidney disease, stage 4 (severe); R60.0 Localized edema
CPT/HCPCS: 36415; 80048; 83970

== ENCOUNTER 2016-10-28 11:45 | Outpatient (CLI) | payer MEDICARE, OTHER ==
[2016-10-28 12:40] LABS: #Basophils 0.2 thou/uL (0.0-0.2); #Eosinphils 0.6 thou/uL (0.0-0.7); #Lymphocytes 1.7 thou/uL (1.20-3.40); #Monocytes 1.5 thou/uL (0.11-0.59); #Neutrophils 9.9 thou/uL (1.40-6.50); %Basophils 1.4 % (0.0-1.0); %Eosinophils 4.1 % (0.0-10.0); %Lymphocytes 12.2 % (21.0-51.0); %Monocytes 10.8 % (0.0-10.0); %Neutrophils 71.5 % (42.0-75.0); Hemoglobin 9.1 g/dL (14.0-18.0); Mean Corpuscular HGB CONC 33.1 g/dL (32.0-36.0); Mean Corpuscular Volume 93.9 fl (80.0-94.0); Mean Platelet Volume 8.3 fL (7.4-10.4); Platelet Count 195 thou/uL (130-400); RBC Distribution Width 13.1 % (11.5-14.5); Red Blood Cell (RBC) Count 2.92 mill/uL (4.70-6.10); White Blood Cell (WBC) Count 13.8 thou/uL (4.8-10.8)
[2016-10-28 12:46] LABS: Anion Gap 18 mmol/L (10-20); BUN (Urea Nitrogen) 88 mg/dL (8.4-25.7); Calc. Creatinine Clearance 0 mL/min (70-130); Calcium 8.1 mg/dL (7.8-10.44); Carbon Dioxide 22 mmol/L (22-29); Chloride 105 mmol/L (98-107); Estimated GFR-MDRD 16; Glucose 216 mg/dL (70-105); Potassium 4.1 mmol/L (3.5-5.1); Sodium 141 mmol/L (136-145)
== END 2016-10-28 11:46 | disposition home or self-care (01) ==
LOC: HPCALD 11:45
PROVIDERS: ATTEND Family Medicine
DX: N18.4 Chronic kidney disease, stage 4 (severe) (principal)
CPT/HCPCS: 36415; 80048; 85025

== ENCOUNTER 2016-10-28 12:58 | Inpatient (IN) | payer MEDICARE, OTHER ==
[2016-10-28] MEDS ORDERED: Bisacodyl 10 MG SUPP PR PRN (13:18)
[2016-10-28] MEDS ORDERED: Milk Of Magnesia 30 ML UDCUP PO PRN (13:18)
[2016-10-28] MEDS ORDERED: Acetaminophen 325 MG TAB PO PRN (17:34)
[2016-10-28] MEDS ORDERED: Dextrose 5% in Water 1,000 ML IV PRN (17:37)
[2016-10-28] MEDS ORDERED: Dextrose 50% Abboject 50 ML SYRINGE SLOW IVP PRN (17:37)
[2016-10-28] MEDS: HumaLOG 300 UNITS/3 ML VIAL SC PRN ×2 (18:39→21:36)
[2016-10-28] MEDS: cloNIDine HCl 0.1 MG TAB PO SCH (21:28)
[2016-10-28] MEDS: Amitriptyline HCl 25 MG TAB PO SCH (21:33)
[2016-10-28] MEDS: Mirtazapine 15 MG TAB PO SCH (21:33)
[2016-10-28] MEDS: Carvedilol 12.5 MG TAB PO SCH (21:34)
[2016-10-28] MEDS: Docusate 100 MG CAP PO SCH (21:34)
[2016-10-28] MEDS: Levemir Flexpen 100 UNITS/ML PEN SC SCH (21:35)
[2016-10-28] MEDS: Isosorbide Mononitrate 20 MG TAB PO SCH (21:51)
[2016-10-29] MEDS: HumaLOG 300 UNITS/3 ML VIAL SC SCH ×3 (08:19→17:16)
[2016-10-29] MEDS: Levemir Flexpen 100 UNITS/ML PEN SC SCH ×2 (08:22→21:49)
[2016-10-29] MEDS: Aspirin 325 mg Enteric Coated Tablet PO SCH (08:22)
[2016-10-29] MEDS: cloNIDine HCl 0.1 MG TAB PO SCH ×2 (08:23→21:47)
[2016-10-29] MEDS: Carvedilol 12.5 MG TAB PO SCH ×2 (08:24→21:44)
[2016-10-29] MEDS: Ezetimibe 10 MG TAB PO SCH (08:24)
[2016-10-29] MEDS: Furosemide 40 MG TAB PO SCH ×2 (08:25→13:37)
[2016-10-29] MEDS: Cyanocobalamin (Vitamin B-12) 1,000 MCG TAB PO SCH (08:27)
[2016-10-29] MEDS: Atorvastatin Calcium 40 MG TAB PO SCH (08:27)
[2016-10-29] MEDS: Docusate 100 MG CAP PO SCH ×2 (08:27→21:44)
[2016-10-29] MEDS: Clopidogrel Bisulfate 75 MG TAB PO SCH (08:28)
[2016-10-29] MEDS: Polyethylene Glycol 3350 17 GM Packet PO SCH (08:29)
[2016-10-29] MEDS: SODIUM BICARBONATE 650 MG PO SCH (11:33)
[2016-10-29] MEDS: Isosorbide Mononitrate 20 MG TAB PO SCH ×3 (11:35→21:44)
[2016-10-29] MEDS: Mirtazapine 15 MG TAB PO SCH (21:48)
[2016-10-29] MEDS: Amitriptyline HCl 25 MG TAB PO SCH (21:48)
[2016-10-29] MEDS: HumaLOG 300 UNITS/3 ML VIAL SC PRN (21:50)
[2016-10-30] MEDS: Polyethylene Glycol 3350 17 GM Packet PO SCH (09:11)
[2016-10-30] MEDS: Docusate 100 MG CAP PO SCH ×2 (09:12→21:19)
[2016-10-30] MEDS: Atorvastatin Calcium 40 MG TAB PO SCH (09:12)
[2016-10-30] MEDS: Clopidogrel Bisulfate 75 MG TAB PO SCH (09:13)
[2016-10-30] MEDS: Isosorbide Mononitrate 20 MG TAB PO SCH ×2 (09:15→21:16)
[2016-10-30] MEDS: cloNIDine HCl 0.1 MG TAB PO SCH ×2 (09:15→21:17)
[2016-10-30] MEDS: Ezetimibe 10 MG TAB PO SCH (09:15)
[2016-10-30] MEDS: Cyanocobalamin (Vitamin B-12) 1,000 MCG TAB PO SCH (09:16)
[2016-10-30] MEDS: Furosemide 40 MG TAB PO SCH ×2 (09:17→14:02)
[2016-10-30] MEDS: Aspirin 325 mg Enteric Coated Tablet PO SCH (09:17)
[2016-10-30] MEDS: Carvedilol 12.5 MG TAB PO SCH ×2 (09:17→21:17)
[2016-10-30] MEDS: HumaLOG 300 UNITS/3 ML VIAL SC SCH ×3 (09:18→17:48)
[2016-10-30] MEDS: SODIUM BICARBONATE 650 MG PO SCH ×2 (09:19→21:26)
[2016-10-30] MEDS: Levemir Flexpen 100 UNITS/ML PEN SC SCH ×2 (09:19→21:20)
[2016-10-30] MEDS: HumaLOG 300 UNITS/3 ML VIAL SC PRN ×2 (12:57→21:20)
[2016-10-30] MEDS: Mirtazapine 15 MG TAB PO SCH (21:19)
[2016-10-30] MEDS: Amitriptyline HCl 25 MG TAB PO SCH (21:19)
[2016-10-31 05:38] LABS: #Basophils 0.3 thou/uL (0.0-0.2); #Eosinphils 0.6 thou/uL (0.0-0.7); #Lymphocytes 1.9 thou/uL (1.20-3.40); #Neutrophils 8.1 thou/uL (1.40-6.50); %Basophils 2.5 % (0.0-1.0); %Eosinophils 4.8 % (0.0-10.0); %Lymphocytes 16.1 % (21.0-51.0); %Monocytes 8.3 % (0.0-10.0); %Neutrophils 68.3 % (42.0-75.0); Mean Corpuscular Hemoglobin 31.8 pg (27.0-31.0); Mean Corpuscular Volume 93.4 fl (80.0-94.0); Platelet Count 212 thou/uL (130-400); RBC Distribution Width 13.2 % (11.5-14.5); Red Blood Cell (RBC) Count 2.51 mill/uL (4.70-6.10); White Blood Cell (WBC) Count 11.9 thou/uL (4.8-10.8)
[2016-10-31 05:44] LABS: Anion Gap 14 mmol/L (10-20); BUN (Urea Nitrogen) 93 mg/dL (8.4-25.7); Calc. Creatinine Clearance 19 mL/min (70-130); Calcium 8.1 mg/dL (7.8-10.44); Carbon Dioxide 22 mmol/L (22-29); Chloride 109 mmol/L (98-107); Estimated GFR-MDRD 15; Glucose 115 mg/dL (70-105); Potassium 4.3 mmol/L (3.5-5.1); Sodium 141 mmol/L (136-145)
[2016-10-31] MEDS: Atorvastatin Calcium 40 MG TAB PO SCH (08:34)
[2016-10-31] MEDS: Ezetimibe 10 MG TAB PO SCH (08:34)
[2016-10-31] MEDS: Docusate 100 MG CAP PO SCH ×2 (08:34→20:56)
[2016-10-31] MEDS: Clopidogrel Bisulfate 75 MG TAB PO SCH (08:34)
[2016-10-31] MEDS: Aspirin 325 mg Enteric Coated Tablet PO SCH (08:34)
[2016-10-31] MEDS: Cyanocobalamin (Vitamin B-12) 1,000 MCG TAB PO SCH (08:35)
[2016-10-31] MEDS: Furosemide 40 MG TAB PO SCH ×2 (08:35→14:33)
[2016-10-31] MEDS: HumaLOG 300 UNITS/3 ML VIAL SC SCH ×3 (08:37→18:07)
[2016-10-31] MEDS: Carvedilol 12.5 MG TAB PO SCH ×2 (08:38→20:57)
[2016-10-31] MEDS: cloNIDine HCl 0.1 MG TAB PO SCH ×2 (08:39→20:56)
[2016-10-31] MEDS: Isosorbide Mononitrate 20 MG TAB PO SCH ×2 (08:40→20:55)
[2016-10-31] MEDS: SODIUM BICARBONATE 650 MG PO SCH ×2 (08:41→20:59)
[2016-10-31] MEDS: Polyethylene Glycol 3350 17 GM Packet PO SCH (08:41)
[2016-10-31] MEDS: Levemir Flexpen 100 UNITS/ML PEN SC SCH ×2 (08:42→20:59)
[2016-10-31] MEDS: Amitriptyline HCl 25 MG TAB PO SCH (20:55)
[2016-10-31] MEDS: Mirtazapine 15 MG TAB PO SCH (20:55)
[2016-11-01] MEDS: Polyethylene Glycol 3350 17 GM Packet PO SCH (09:19)
[2016-11-01] MEDS: Clopidogrel Bisulfate 75 MG TAB PO SCH (09:19)
[2016-11-01] MEDS: Isosorbide Mononitrate 20 MG TAB PO SCH ×2 (09:19→20:59)
[2016-11-01] MEDS: Cyanocobalamin (Vitamin B-12) 1,000 MCG TAB PO SCH (09:19)
[2016-11-01] MEDS: Atorvastatin Calcium 40 MG TAB PO SCH (09:20)
[2016-11-01] MEDS: Furosemide 40 MG TAB PO SCH (09:22)
[2016-11-01] MEDS: Ezetimibe 10 MG TAB PO SCH (09:22)
[2016-11-01] MEDS: Aspirin 325 mg Enteric Coated Tablet PO SCH (09:23)
[2016-11-01] MEDS: cloNIDine HCl 0.1 MG TAB PO SCH ×2 (09:23→20:59)
[2016-11-01] MEDS: Carvedilol 12.5 MG TAB PO SCH ×2 (09:24→20:58)
[2016-11-01] MEDS: Docusate 100 MG CAP PO SCH ×2 (09:26→20:57)
[2016-11-01] MEDS: HumaLOG 300 UNITS/3 ML VIAL SC SCH ×2 (09:27→13:08)
[2016-11-01] MEDS: Levemir Flexpen 100 UNITS/ML PEN SC SCH ×2 (09:28→20:57)
[2016-11-01] MEDS: HumaLOG 300 UNITS/3 ML VIAL SC PRN ×3 (09:28→21:00)
[2016-11-01] MEDS: SODIUM BICARBONATE 650 MG PO SCH ×2 (09:37→20:56)
[2016-11-01] MEDS: Mirtazapine 15 MG TAB PO SCH (20:59)
[2016-11-01] MEDS: Amitriptyline HCl 25 MG TAB PO SCH (21:00)
[2016-11-02] MEDS: HumaLOG 300 UNITS/3 ML VIAL SC PRN ×4 (08:54→21:46)
[2016-11-02] MEDS: Levemir Flexpen 100 UNITS/ML PEN SC SCH ×2 (08:55→21:39)
[2016-11-02] MEDS: Polyethylene Glycol 3350 17 GM Packet PO SCH (08:56)
[2016-11-02] MEDS: Atorvastatin Calcium 40 MG TAB PO SCH (08:58)
[2016-11-02] MEDS: Isosorbide Mononitrate 20 MG TAB PO SCH ×2 (08:59→21:36)
[2016-11-02] MEDS: Clopidogrel Bisulfate 75 MG TAB PO SCH (08:59)
[2016-11-02] MEDS: Docusate 100 MG CAP PO SCH ×2 (09:01→21:39)
[2016-11-02] MEDS: Furosemide 40 MG TAB PO SCH (09:01)
[2016-11-02] MEDS: Aspirin 325 mg Enteric Coated Tablet PO SCH (09:01)
[2016-11-02] MEDS: Ezetimibe 10 MG TAB PO SCH (09:01)
[2016-11-02] MEDS: cloNIDine HCl 0.1 MG TAB PO SCH ×2 (09:02→21:38)
[2016-11-02] MEDS: Carvedilol 12.5 MG TAB PO SCH ×2 (09:03→21:37)
[2016-11-02] MEDS: Cyanocobalamin (Vitamin B-12) 1,000 MCG TAB PO SCH (09:03)
[2016-11-02] MEDS: SODIUM BICARBONATE 650 MG PO SCH ×2 (09:06→21:56)
[2016-11-02] MEDS: Amitriptyline HCl 25 MG TAB PO SCH (21:36)
[2016-11-02] MEDS: Mirtazapine 15 MG TAB PO SCH (21:39)
[2016-11-03 06:00] LABS: Anion Gap 18 mmol/L (10-20); BUN (Urea Nitrogen) 81 mg/dL (8.4-25.7); Calc. Creatinine Clearance 22 mL/min (70-130); Calcium 8.5 mg/dL (7.8-10.44); Carbon Dioxide 22 mmol/L (22-29); Chloride 111 mmol/L (98-107); Estimated GFR-MDRD 17; Glucose 93 mg/dL (70-105); Potassium 4.8 mmol/L (3.5-5.1); Sodium 146 mmol/L (136-145)
[2016-11-03] MEDS: Docusate 100 MG CAP PO SCH ×2 (08:21→21:25)
[2016-11-03] MEDS: Polyethylene Glycol 3350 17 GM Packet PO SCH (08:21)
[2016-11-03] MEDS: Ezetimibe 10 MG TAB PO SCH (08:21)
[2016-11-03] MEDS: Aspirin 325 mg Enteric Coated Tablet PO SCH (08:22)
[2016-11-03] MEDS: Isosorbide Mononitrate 20 MG TAB PO SCH ×2 (08:22→21:25)
[2016-11-03] MEDS: Atorvastatin Calcium 40 MG TAB PO SCH (08:24)
[2016-11-03] MEDS: Furosemide 40 MG TAB PO SCH (08:25)
[2016-11-03] MEDS: Cyanocobalamin (Vitamin B-12) 1,000 MCG TAB PO SCH (08:25)
[2016-11-03] MEDS: cloNIDine HCl 0.1 MG TAB PO SCH ×2 (08:27→21:26)
[2016-11-03] MEDS: Clopidogrel Bisulfate 75 MG TAB PO SCH (08:28)
[2016-11-03] MEDS: SODIUM BICARBONATE 650 MG PO SCH ×2 (08:29→21:37)
[2016-11-03] MEDS: Carvedilol 12.5 MG TAB PO SCH ×2 (08:30→21:26)
[2016-11-03] MEDS: Levemir Flexpen 100 UNITS/ML PEN SC SCH ×2 (08:31→21:34)
[2016-11-03] MEDS: HumaLOG 300 UNITS/3 ML VIAL SC PRN ×3 (08:45→21:35)
[2016-11-03] MEDS: Mirtazapine 15 MG TAB PO SCH (21:24)
[2016-11-03] MEDS: Amitriptyline HCl 25 MG TAB PO SCH (21:26)
[2016-11-04] MEDS: Levemir Flexpen 100 UNITS/ML PEN SC SCH ×2 (08:56→21:02)
[2016-11-04] MEDS: Docusate 100 MG CAP PO SCH ×2 (08:57→21:00)
[2016-11-04] MEDS: Isosorbide Mononitrate 20 MG TAB PO SCH ×2 (08:57→21:01)
[2016-11-04] MEDS: cloNIDine HCl 0.1 MG TAB PO SCH ×2 (08:58→20:59)
[2016-11-04] MEDS: Furosemide 40 MG TAB PO SCH (08:58)
[2016-11-04] MEDS: Aspirin 325 mg Enteric Coated Tablet PO SCH (08:58)
[2016-11-04] MEDS: Atorvastatin Calcium 40 MG TAB PO SCH (09:00)
[2016-11-04] MEDS: Ezetimibe 10 MG TAB PO SCH (09:01)
[2016-11-04] MEDS: Clopidogrel Bisulfate 75 MG TAB PO SCH (09:01)
[2016-11-04] MEDS: Cyanocobalamin (Vitamin B-12) 1,000 MCG TAB PO SCH (09:02)
[2016-11-04] MEDS: Carvedilol 12.5 MG TAB PO SCH ×2 (09:02→20:59)
[2016-11-04] MEDS: SODIUM BICARBONATE 650 MG PO SCH ×2 (09:04→21:03)
[2016-11-04] MEDS: Polyethylene Glycol 3350 17 GM Packet PO SCH (09:04)
[2016-11-04] MEDS: HumaLOG 300 UNITS/3 ML VIAL SC PRN ×3 (12:46→21:04)
[2016-11-04] MEDS ORDERED: Furosemide 40 MG TAB PO SCH (17:45)
[2016-11-04] MEDS: Amitriptyline HCl 25 MG TAB PO SCH (20:58)
[2016-11-04] MEDS: Mirtazapine 15 MG TAB PO SCH (21:02)
[2016-11-05] MEDS: Polyethylene Glycol 3350 17 GM Packet PO SCH (08:47)
[2016-11-05] MEDS: Carvedilol 12.5 MG TAB PO SCH ×2 (08:47→20:19)
[2016-11-05] MEDS: Atorvastatin Calcium 40 MG TAB PO SCH (08:47)
[2016-11-05] MEDS: Isosorbide Mononitrate 20 MG TAB PO SCH ×2 (08:48→20:17)
[2016-11-05] MEDS: Furosemide 40 MG TAB PO SCH (08:51)
[2016-11-05] MEDS: Docusate 100 MG CAP PO SCH ×2 (08:51→20:19)
[2016-11-05] MEDS: Cyanocobalamin (Vitamin B-12) 1,000 MCG TAB PO SCH (08:51)
[2016-11-05] MEDS: cloNIDine HCl 0.1 MG TAB PO SCH ×2 (08:51→20:17)
[2016-11-05] MEDS: Aspirin 325 mg Enteric Coated Tablet PO SCH (08:52)
[2016-11-05] MEDS: Ezetimibe 10 MG TAB PO SCH (08:52)
[2016-11-05] MEDS: Clopidogrel Bisulfate 75 MG TAB PO SCH (08:52)
[2016-11-05] MEDS: Levemir Flexpen 100 UNITS/ML PEN SC SCH ×2 (08:59→20:20)
[2016-11-05] MEDS: HumaLOG 300 UNITS/3 ML VIAL SC PRN ×3 (13:38→20:34)
[2016-11-05] MEDS: SODIUM BICARBONATE 650 MG PO SCH ×2 (13:59→20:16)
[2016-11-05] MEDS: Mirtazapine 15 MG TAB PO SCH (20:19)
[2016-11-05] MEDS: Amitriptyline HCl 25 MG TAB PO SCH (20:19)
[2016-11-06] MEDS: Furosemide 40 MG TAB PO SCH (08:37)
[2016-11-06] MEDS: Carvedilol 12.5 MG TAB PO SCH ×2 (08:39→21:21)
[2016-11-06] MEDS: cloNIDine HCl 0.1 MG TAB PO SCH ×2 (08:39→21:22)
[2016-11-06] MEDS: Aspirin 325 mg Enteric Coated Tablet PO SCH (08:40)
[2016-11-06] MEDS: Cyanocobalamin (Vitamin B-12) 1,000 MCG TAB PO SCH (08:41)
[2016-11-06] MEDS: Atorvastatin Calcium 40 MG TAB PO SCH (08:41)
[2016-11-06] MEDS: Clopidogrel Bisulfate 75 MG TAB PO SCH (08:42)
[2016-11-06] MEDS: Ezetimibe 10 MG TAB PO SCH (08:42)
[2016-11-06] MEDS: Isosorbide Mononitrate 20 MG TAB PO SCH ×2 (08:42→21:23)
[2016-11-06] MEDS: SODIUM BICARBONATE 650 MG PO SCH ×2 (08:44→21:27)
[2016-11-06] MEDS: Polyethylene Glycol 3350 17 GM Packet PO SCH (08:44)
[2016-11-06] MEDS: Levemir Flexpen 100 UNITS/ML PEN SC SCH ×2 (08:47→21:25)
[2016-11-06] MEDS: Docusate 100 MG CAP PO SCH ×2 (09:33→21:20)
[2016-11-06] MEDS: HumaLOG 300 UNITS/3 ML VIAL SC PRN ×3 (12:56→21:24)
[2016-11-06] MEDS: Mirtazapine 15 MG TAB PO SCH (21:22)
[2016-11-06] MEDS: Amitriptyline HCl 25 MG TAB PO SCH (21:23)
[2016-11-07 06:27] LABS: Anion Gap 16 mmol/L (10-20); BUN (Urea Nitrogen) 76 mg/dL (8.4-25.7); Calc. Creatinine Clearance 20 mL/min (70-130); Calcium 8.7 mg/dL (7.8-10.44); Carbon Dioxide 22 mmol/L (22-29); Chloride 111 mmol/L (98-107); Estimated GFR-MDRD 15; Glucose 104 mg/dL (70-105); Potassium 5.7 mmol/L (3.5-5.1); Sodium 143 mmol/L (136-145)
[2016-11-07] MEDS: SODIUM BICARBONATE 650 MG PO SCH ×2 (08:45→21:09)
[2016-11-07] MEDS: Polyethylene Glycol 3350 17 GM Packet PO SCH (08:45)
[2016-11-07] MEDS: Furosemide 40 MG TAB PO SCH (08:46)
[2016-11-07] MEDS: Carvedilol 12.5 MG TAB PO SCH ×2 (08:48→21:12)
[2016-11-07] MEDS: Atorvastatin Calcium 40 MG TAB PO SCH (08:48)
[2016-11-07] MEDS: cloNIDine HCl 0.1 MG TAB PO SCH ×2 (08:49→21:11)
[2016-11-07] MEDS: Ezetimibe 10 MG TAB PO SCH (08:50)
[2016-11-07] MEDS: Docusate 100 MG CAP PO SCH ×2 (08:50→21:11)
[2016-11-07] MEDS: Aspirin 325 mg Enteric Coated Tablet PO SCH (08:50)
[2016-11-07] MEDS: Clopidogrel Bisulfate 75 MG TAB PO SCH (08:50)
[2016-11-07] MEDS: Cyanocobalamin (Vitamin B-12) 1,000 MCG TAB PO SCH (08:50)
[2016-11-07] MEDS: Isosorbide Mononitrate 20 MG TAB PO SCH ×2 (08:51→21:10)
[2016-11-07] MEDS: Levemir Flexpen 100 UNITS/ML PEN SC SCH ×2 (08:52→21:09)
[2016-11-07] MEDS: HumaLOG 300 UNITS/3 ML VIAL SC PRN (15:38)
[2016-11-07] MEDS: Amitriptyline HCl 25 MG TAB PO SCH (21:11)
[2016-11-07] MEDS: Mirtazapine 15 MG TAB PO SCH (21:12)
[2016-11-08] MEDS: SODIUM BICARBONATE 650 MG PO SCH ×2 (09:07→20:59)
[2016-11-08] MEDS: Isosorbide Mononitrate 20 MG TAB PO SCH ×2 (09:08→21:01)
[2016-11-08] MEDS: Polyethylene Glycol 3350 17 GM Packet PO SCH (09:08)
[2016-11-08] MEDS: Cyanocobalamin (Vitamin B-12) 1,000 MCG TAB PO SCH (09:11)
[2016-11-08] MEDS: Furosemide 40 MG TAB PO SCH (09:11)
[2016-11-08] MEDS: Docusate 100 MG CAP PO SCH ×2 (09:11→21:01)
[2016-11-08] MEDS: Carvedilol 12.5 MG TAB PO SCH ×2 (09:11→21:01)
[2016-11-08] MEDS: cloNIDine HCl 0.1 MG TAB PO SCH ×2 (09:12→21:00)
[2016-11-08] MEDS: Clopidogrel Bisulfate 75 MG TAB PO SCH (09:12)
[2016-11-08] MEDS: Atorvastatin Calcium 40 MG TAB PO SCH (09:12)
[2016-11-08] MEDS: Aspirin 325 mg Enteric Coated Tablet PO SCH (09:12)
[2016-11-08] MEDS: Levemir Flexpen 100 UNITS/ML PEN SC SCH ×2 (09:13→21:03)
[2016-11-08] MEDS: Ezetimibe 10 MG TAB PO SCH (09:13)
[2016-11-08] MEDS: HumaLOG 300 UNITS/3 ML VIAL SC PRN ×2 (13:17→21:02)
[2016-11-08] MEDS: Mirtazapine 15 MG TAB PO SCH (21:02)
[2016-11-08] MEDS: Amitriptyline HCl 25 MG TAB PO SCH (21:02)
[2016-11-09] MEDS: Atorvastatin Calcium 40 MG TAB PO SCH (08:54)
[2016-11-09] MEDS: Polyethylene Glycol 3350 17 GM Packet PO SCH (08:55)
[2016-11-09] MEDS: Isosorbide Mononitrate 20 MG TAB PO SCH ×2 (08:56→21:11)
[2016-11-09] MEDS: cloNIDine HCl 0.1 MG TAB PO SCH ×2 (08:57→21:11)
[2016-11-09] MEDS: Aspirin 325 mg Enteric Coated Tablet PO SCH (08:58)
[2016-11-09] MEDS: Ezetimibe 10 MG TAB PO SCH (08:58)
[2016-11-09] MEDS: Clopidogrel Bisulfate 75 MG TAB PO SCH (08:58)
[2016-11-09] MEDS: Cyanocobalamin (Vitamin B-12) 1,000 MCG TAB PO SCH (08:58)
[2016-11-09] MEDS: Carvedilol 12.5 MG TAB PO SCH ×2 (08:58→21:12)
[2016-11-09] MEDS: Furosemide 40 MG TAB PO SCH (08:58)
[2016-11-09] MEDS: Docusate 100 MG CAP PO SCH ×2 (08:59→21:12)
[2016-11-09] MEDS: Levemir Flexpen 100 UNITS/ML PEN SC SCH ×2 (09:00→21:14)
[2016-11-09] MEDS: SODIUM BICARBONATE 650 MG PO SCH ×2 (09:01→21:10)
[2016-11-09] MEDS: HumaLOG 300 UNITS/3 ML VIAL SC PRN (17:48)
[2016-11-09] MEDS: Mirtazapine 15 MG TAB PO SCH (21:11)
[2016-11-09] MEDS: Amitriptyline HCl 25 MG TAB PO SCH (21:14)
[2016-11-10 05:54] LABS: Anion Gap 16 mmol/L (10-20); BUN (Urea Nitrogen) 79 mg/dL (8.4-25.7); Calc. Creatinine Clearance 18 mL/min (70-130); Calcium 8.5 mg/dL (7.8-10.44); Carbon Dioxide 20 mmol/L (22-29); Chloride 110 mmol/L (98-107); Estimated GFR-MDRD 14; Glucose 116 mg/dL (70-105); Potassium 5.9 mmol/L (3.5-5.1); Sodium 140 mmol/L (136-145)
[2016-11-10] MEDS ORDERED: Albuterol Sulfate 1.25 MG/3 ML NEB NEB PRN (07:22)
[2016-11-10] MEDS ORDERED: Albuterol Sulfate 1.25 MG/3 ML NEB NEB SCH (07:30)
[2016-11-10] MEDS: Polyethylene Glycol 3350 17 GM Packet PO SCH (09:04)
[2016-11-10] MEDS: cloNIDine HCl 0.1 MG TAB PO SCH ×2 (09:04→21:29)
[2016-11-10] MEDS: Aspirin 325 mg Enteric Coated Tablet PO SCH (09:08)
[2016-11-10] MEDS: Furosemide 40 MG TAB PO SCH (09:08)
[2016-11-10] MEDS: Atorvastatin Calcium 40 MG TAB PO SCH (09:08)
[2016-11-10] MEDS: Docusate 100 MG CAP PO SCH ×2 (09:09→21:29)
[2016-11-10] MEDS: Ezetimibe 10 MG TAB PO SCH (09:10)
[2016-11-10] MEDS: Isosorbide Mononitrate 20 MG TAB PO SCH ×2 (09:10→21:28)
[2016-11-10] MEDS: Carvedilol 12.5 MG TAB PO SCH ×2 (09:11→21:29)
[2016-11-10] MEDS: SODIUM BICARBONATE 650 MG PO SCH ×2 (09:12→21:31)
[2016-11-10] MEDS: Clopidogrel Bisulfate 75 MG TAB PO SCH (09:12)
[2016-11-10] MEDS: Cyanocobalamin (Vitamin B-12) 1,000 MCG TAB PO SCH (09:12)
[2016-11-10] MEDS: Levemir Flexpen 100 UNITS/ML PEN SC SCH ×2 (09:13→21:30)
[2016-11-10] MEDS: HumaLOG 300 UNITS/3 ML VIAL SC PRN ×2 (12:22→17:36)
[2016-11-10 14:12] LABS: Anion Gap 19 mmol/L (10-20); BUN (Urea Nitrogen) 78 mg/dL (8.4-25.7); Calc. Creatinine Clearance 18 mL/min (70-130); Calcium 8.9 mg/dL (7.8-10.44); Carbon Dioxide 21 mmol/L (22-29); Chloride 108 mmol/L (98-107); Estimated GFR-MDRD 14; Glucose 157 mg/dL (70-105); Potassium 6.1 mmol/L (3.5-5.1); Sodium 142 mmol/L (136-145)
[2016-11-10] MEDS: Albuterol Sulfate 1.25 MG/3 ML NEB NEB SCH ×2 (16:03→23:36)
[2016-11-10 21:18] LABS: Anion Gap 19 mmol/L (10-20); BUN (Urea Nitrogen) 82 mg/dL (8.4-25.7); Calc. Creatinine Clearance 18 mL/min (70-130); Calcium 8.4 mg/dL (7.8-10.44); Carbon Dioxide 22 mmol/L (22-29); Chloride 107 mmol/L (98-107); Estimated GFR-MDRD 13; Glucose 177 mg/dL (70-105); Potassium 5.6 mmol/L (3.5-5.1); Sodium 142 mmol/L (136-145)
[2016-11-10] MEDS: Mirtazapine 15 MG TAB PO SCH (21:30)
[2016-11-10] MEDS: Amitriptyline HCl 25 MG TAB PO SCH (21:30)
[2016-11-11 04:10] VITALS: BMI 21.9
[2016-11-11 05:35] LABS: Anion Gap 18 mmol/L (10-20); BUN (Urea Nitrogen) 78 mg/dL (8.4-25.7); Calc. Creatinine Clearance 18 mL/min (70-130); Calcium 8.2 mg/dL (7.8-10.44); Carbon Dioxide 21 mmol/L (22-29); Chloride 109 mmol/L (98-107); Estimated GFR-MDRD 14; Glucose 109 mg/dL (70-105); Potassium 4.8 mmol/L (3.5-5.1); Sodium 143 mmol/L (136-145)
[2016-11-11] MEDS: Albuterol Sulfate 1.25 MG/3 ML NEB NEB SCH ×2 (06:23→15:45)
[2016-11-11 06:29] VITALS: BP 148/72
[2016-11-11] MEDS: Polyethylene Glycol 3350 17 GM Packet PO SCH (08:51)
[2016-11-11] MEDS: Furosemide 40 MG TAB PO SCH (08:53)
[2016-11-11] MEDS: Ezetimibe 10 MG TAB PO SCH (08:56)
[2016-11-11] MEDS: Isosorbide Mononitrate 20 MG TAB PO SCH (08:56)
[2016-11-11] MEDS: cloNIDine HCl 0.1 MG TAB PO SCH (08:58)
[2016-11-11] MEDS: Carvedilol 12.5 MG TAB PO SCH (08:58)
[2016-11-11] MEDS: Cyanocobalamin (Vitamin B-12) 1,000 MCG TAB PO SCH (08:58)
[2016-11-11] MEDS: Clopidogrel Bisulfate 75 MG TAB PO SCH (08:58)
[2016-11-11] MEDS: Atorvastatin Calcium 40 MG TAB PO SCH (08:59)
[2016-11-11] MEDS: Aspirin 325 mg Enteric Coated Tablet PO SCH (08:59)
[2016-11-11] MEDS: SODIUM BICARBONATE 650 MG PO SCH (08:59)
[2016-11-11] MEDS: Docusate 100 MG CAP PO SCH (08:59)
[2016-11-11] MEDS: Levemir Flexpen 100 UNITS/ML PEN SC SCH (09:08)
[2016-11-11 10:25] VITALS: TEMP 98
[2016-11-11] MEDS: HumaLOG 300 UNITS/3 ML VIAL SC PRN (13:19)
== END 2016-11-11 16:55 | disposition hospice, home (50) | DRG 291 ==
LOC: BURMED 12:58
PROVIDERS: ADMIT Family Medicine; ATTEND Family Medicine
DX: I13.2 Hypertensive heart and chronic kidney disease with heart failure and with stage 5 chronic kidney disease, or end stage renal disease (principal); N18.6 End stage renal disease; E11.22 Type 2 diabetes mellitus with diabetic chronic kidney disease; I50.42 Chronic combined systolic (congestive) and diastolic (congestive) heart failure; Z79.4 Long term (current) use of insulin; R53.81 Other malaise; E11.65 Type 2 diabetes mellitus with hyperglycemia; W01.0XXA Fall on same level from slipping, tripping and stumbling without subsequent striking against object, initial encounter; E78.5 Hyperlipidemia, unspecified; F32.9 Major depressive disorder, single episode, unspecified; E11.49 Type 2 diabetes mellitus with other diabetic neurological complication; B18.2 Chronic viral hepatitis C; I25.10 Atherosclerotic heart disease of native coronary artery without angina pectoris; I25.5 Ischemic cardiomyopathy; D63.1 Anemia in chronic kidney disease; G89.4 Chronic pain syndrome; E87.5 Hyperkalemia; Z51.5 Encounter for palliative care; F17.210 Nicotine dependence, cigarettes, uncomplicated
CPT/HCPCS: 36415; 36416; 80048; 85025; G8978-GP-CM; G8979-GP-CL; G8987-GO-CK; G8988-GO-CI; J1815